=== PATIENT | female | born 1940 | race Caucasian/White ===

== ENCOUNTER 2016-11-17 21:01 | Inpatient (IN) | payer MEDICARE, MEDICAID ==
[~2016-11-17] VITALS: Ht 127 cm; Wt 71.8 kg
[~2016-11-17 21:01] MED LIST: AMLO5TAB88 PO; ASPI-1158 PO; ATROV; BIMA2.5D4; CALC0.253 PO; CARV6.2548 PO; FERR325T23 PO; GABA-531 PO; HYDR25TA PO; LISI10TA5 PO; NITR0.4T49; PIOG45TA18 PO; TRAM50TA PO
[2016-11-17 21:37] LABS: HEMATOCRIT. 22.5 % (36.0-48.0); HEMOGLOBIN. 7.7 g/dL (12.0-16.0); MEAN CORPUSCULAR HEMOGLOBIN 30.4 pg (28.0-32.0); MEAN CORPUSCULAR VOLUME 89.1 fL (81.0-99.0); MEAN PLATELET VOLUME 8.7 fl (7.4-10.4); PLATELET 318 x1000/uL (130-400); RED BLOOD CELL COUNT 2.53 mill/uL (4.2-5.4); RED CELL DISTRIBUTION WIDTH 13.5 % (11.6-14.6)
[2016-11-17 21:46] LABS: INR 1.1
[2016-11-17 21:58] LABS: PLATELET ESTIMATE NORMAL
[2016-11-17 22:00] LABS: CARBON DIOXIDE 18 mEq/L (21-32); CHLORIDE 94 mEq/L (98-107)
[2016-11-17 22:03] LABS: TROPONIN I 0.04 ng/mL (0.00-0.04)
[2016-11-17] MEDS ORDERED: SODIUM CHLORIDE 0.9% 1,000 ML IV ONE (22:45)
[2016-11-17] MEDS ORDERED: POTASSIUM CHLORIDE INJ 40 MEQ in DEXT 5% WATER 250 ML IV ONE (22:45)
[2016-11-17] MEDS ORDERED: POTASSIUM CHLORIDE 20MEQ TABLET SR PO ONE (22:45)
[2016-11-17 23:06] LABS: GLUCOSE URINE NEGATIVE (NEGATIVE); KETONES URINE NEGATIVE (NEGATIVE); LEUKOCYTE ESTERASE URINE 1+ (NEGATIVE); NITRITE URINE POSITIVE (NEGATIVE); OCCULT BLOOD URINE 1+ (NEGATIVE); PROTEIN URINE 2+ (NEGATIVE); SPECIFIC GRAVITY URINE 1.012 (1.005-1.030); UROBILINOGEN URINE 0.2 E.U./dL (0.2-1.0)
[2016-11-17 23:09] LABS: CLARITY URINE CLOUDY (CLEAR); COLOR URINE YELLOW (YELLOW)
[2016-11-17] MEDS ORDERED: CEFTRIAXONE 1 G PREMIX 50 ML IV ONE (23:45)
[2016-11-17] MEDS ORDERED: LEVETIRACETAM 1,000 MG in SODIUM CHLORIDE 0.9% 100 ML IV ONE (23:45)
[2016-11-18] VITALS (21 sets, daily range): BP systolic 91–159; BP diastolic 36–85
[2016-11-18] MEDS ORDERED: ONDANSETRON HCL 4MG/2ML VIAL IV PRN
[2016-11-18] MEDS ORDERED: IPRATROPIUM/ALBUTEROL 0.5-3(2.5)MG/3ML NEB INH PRN
[2016-11-18] MEDS ORDERED: SODIUM CHLORIDE 0.9% 500 ML IV ONE (00:30)
[2016-11-18] MEDS: LORAZEPAM 2MG/ML CPJ IV PRN (00:59)
[2016-11-18 01:12] LABS: ETHANOL BLOOD < 10 mg/dL
[2016-11-18 01:14] LABS: TOTAL IRON BINDING CAPACITY 405 ug/dL (250-450)
[2016-11-18] MEDS: DEXT 5%/0.45% NACL KCL 10MEQ/L 1,000 ML IV SCH ×2 (04:55→17:26)
[2016-11-18] MEDS ORDERED: LEVOFLOXACIN 500MG PREMIX 100 ML IV SCH (05:00)
[2016-11-18] MEDS ORDERED: DEXTROSE 50% WATER 50ML SYRINGE IV PRN (06:45)
[2016-11-18] MEDS: BLOOD SUGAR DIAGNOSTIC STRIP TEST SCH ×4 (06:47→21:57)
[2016-11-18] MEDS: INSULIN LISPRO 100 UNITS/ML SUBCUT SCH ×4 (08:00→22:22)
[2016-11-18] MEDS: LEVETIRACETAM 500 MG in SODIUM CHLORIDE 0.9% 100 ML IV SCH ×2 (09:29→21:58)
[2016-11-18] MEDS: PANTOPRAZOLE SODIUM 40 MG/VIAL IV SCH (09:29)
[2016-11-18 09:33] LABS: BASOPHILS % 0.2 % (0.0-2.0); EOSINOPHILS % 0.2 % (0.0-5.0); LYMPHOCYTES % 9.3 % (20.0-50.0); MEAN CORPUSCULAR HEMOGLOBIN 30.8 pg (28.0-32.0); MEAN CORPUSCULAR VOLUME 90.8 fL (81.0-99.0); MEAN PLATELET VOLUME 8.6 fl (7.4-10.4); MONOCYTES % 5.3 % (2.0-8.0); PLATELET 269 x1000/uL (130-400); RED BLOOD CELL COUNT 2.02 mill/uL (4.2-5.4); RED CELL DISTRIBUTION WIDTH 13.6 % (11.6-14.6)
[2016-11-18 09:37] LABS: AMMONIA 40 uMol/L (<32)
[2016-11-18 09:53] LABS: CARBON DIOXIDE 17 mEq/L (21-32); CHLORIDE 99 mEq/L (98-107); HDL CHOLESTEROL 36 mg/dL (40-59); LDL CHOLESTEROL 59 mg/dL (5-100)
[2016-11-18 10:13] LABS: HEMATOCRIT. 18.3 % (36.0-48.0); HEMOGLOBIN. 6.2 g/dL (12.0-16.0)
[2016-11-18 10:38] LABS: VITAMIN B12 SERUM > 2000.0 pg/mL (211-911)
[2016-11-18] MEDS ORDERED: SODIUM BICARBONATE 650 MG TABLET PO SCH (13:00)
[2016-11-18] MEDS ORDERED: POTASSIUM CHLORIDE INJ 60 MEQ in DEXT 5% WATER 500 ML IV NR (13:00)
[2016-11-18 13:11] LABS: *AMPHETAMINES SCREEN URINE NEGATIVE (NEGATIVE); *BARBITURATES SCREEN URINE NEGATIVE (NEGATIVE); *BENZODIAZEPINES SCREEN URINE NEGATIVE (NEGATIVE); *COCAINE SCREEN URINE NEGATIVE (NEGATIVE); CANNABINOID URINE SCREEN NEGATIVE (NEGATIVE); METHADONE URINE SCREEN NEGATIVE (NEGATIVE); OPIATES URINE SCREEN NEGATIVE (NEGATIVE); PHENCYCLIDINE URINE SCREEN NEGATIVE (NEGATIVE)
[2016-11-18 13:28] LABS: PHOSPHORUS 8.6 mg/dL (2.5-4.9)
[2016-11-18] MEDS ORDERED: CALCIUM GLUCONATE 100MG/ML 10ML VIAL IV ONE (14:45)
[2016-11-18] MEDS: CALCIUM GLUCONATE 1,000 MG in DEXT 5% WATER 100 ML IV SCH (17:40)
[2016-11-18] MEDS: SODIUM CHLORIDE 0.9% 1,000 ML IV SCH (21:15)
[2016-11-19] VITALS (16 sets, daily range): BP systolic 101–151; BP diastolic 34–91
[2016-11-19 02:28] LABS: HEMATOCRIT 32.4 % (36.0-48.0); HEMOGLOBIN 10.9 g/dL (12.0-16.0)
[2016-11-19] MEDS: LORAZEPAM 2MG/ML CPJ IV PRN ×2 (03:42→14:30)
[2016-11-19] MEDS ORDERED: POTASSIUM CHLORIDE INJ 40 MEQ in DEXT 5% WATER 250 ML IV NR ×2 (06:00→14:00)
[2016-11-19] MEDS: DEXT 5%/0.45% NACL KCL 10MEQ/L 1,000 ML IV SCH ×2 (06:31→18:30)
[2016-11-19 07:48] LABS: BASOPHILS % 0.3 % (0.0-2.0); EOSINOPHILS % 1.8 % (0.0-5.0); HEMATOCRIT. 33.8 % (36.0-48.0); HEMOGLOBIN. 11.4 g/dL (12.0-16.0); LYMPHOCYTES % 9.1 % (20.0-50.0); MEAN CORPUSCULAR HEMOGLOBIN 29.3 pg (28.0-32.0); MEAN CORPUSCULAR VOLUME 86.6 fL (81.0-99.0); MEAN PLATELET VOLUME 8.5 fl (7.4-10.4); MONOCYTES % 7.7 % (2.0-8.0); NEUTROPHILS % 81.1 % (40.0-76.0); PLATELET 264 x1000/uL (130-400); RED CELL DISTRIBUTION WIDTH 15.6 % (11.6-14.6)
[2016-11-19 07:49] LABS: AMMONIA 40 uMol/L (<32)
[2016-11-19] MEDS: INSULIN LISPRO 100 UNITS/ML SUBCUT SCH ×4 (08:00→20:58)
[2016-11-19] MEDS: BLOOD SUGAR DIAGNOSTIC STRIP TEST SCH ×4 (08:00→20:58)
[2016-11-19] MEDS: SODIUM CHLORIDE 0.9% 1,000 ML IV SCH ×2 (09:56→17:15)
[2016-11-19] MEDS: PANTOPRAZOLE SODIUM 40 MG/VIAL IV SCH (10:15)
[2016-11-19] MEDS: LEVETIRACETAM 500 MG in SODIUM CHLORIDE 0.9% 100 ML IV SCH ×2 (10:15→20:47)
[2016-11-19] MEDS ORDERED: MAGNESIUM 4 G PREMIX 100 ML IV SCH (12:00)
[2016-11-19] MEDS: LACTULOSE 20G/30ML UDC PO SCH (13:07)
[2016-11-19] MEDS ORDERED: LORAZEPAM 2MG/ML CPJ IV PRN (15:30)
[2016-11-19] MEDS: FERROUS SULFATE 325MG TABLET PO SCH (18:00)
[2016-11-19] MEDS: CALCIUM GLUCONATE 1,000 MG in DEXT 5% WATER 100 ML IV SCH (20:46)
[2016-11-20] VITALS (7 sets, daily range): BP systolic 135–175; BP diastolic 50–75
[2016-11-20] MEDS: SODIUM CHLORIDE 0.9% 1,000 ML IV SCH (03:15)
[2016-11-20] MEDS ORDERED: LEVOFLOXACIN 250MG PREMIX 50 ML IV SCH (05:00)
[2016-11-20] MEDS: DEXT 5%/0.45% NACL KCL 10MEQ/L 1,000 ML IV SCH (05:07)
[2016-11-20 06:06] LABS: A/G RATIO 0.6 (0.7-1.7); ALBUMIN 1.9 g/dL (2.9-4.4); ALPHA-1-GLOBULIN 0.4 g/dL (0.0-0.4); ALPHA-2-GLOBULIN 1.1 g/dL (0.4-1.0); BETA GLOBULIN 0.6 g/dL (0.7-1.3); GAMMA GLOBULINS 1.1 g/dL (0.4-1.8); GLOBULIN TOTAL 3.2 g/dL (2.2-3.9); M-SPIKE Not Observed g/dL (Not Observed); TOTAL PROTEIN SERUM 5.1 g/dL (6.0-8.5)
[2016-11-20] MEDS: BLOOD SUGAR DIAGNOSTIC STRIP TEST SCH (07:30)
[2016-11-20] MEDS: INSULIN LISPRO 100 UNITS/ML SUBCUT SCH (08:00)
[2016-11-20 08:39] LABS: BASOPHILS % 1.1 % (0.0-2.0); HEMATOCRIT. 34.9 % (36.0-48.0); HEMOGLOBIN. 11.8 g/dL (12.0-16.0); LYMPHOCYTES % 15.6 % (20.0-50.0); MEAN CORPUSCULAR HEMOGLOBIN 30.4 pg (28.0-32.0); MONOCYTES % 9.8 % (2.0-8.0); NEUTROPHILS % 71.5 % (40.0-76.0); RED BLOOD CELL COUNT 3.88 mill/uL (4.2-5.4); RED CELL DISTRIBUTION WIDTH 16.5 % (11.6-14.6)
[2016-11-20] MEDS: LEVETIRACETAM 500 MG in SODIUM CHLORIDE 0.9% 100 ML IV SCH ×2 (09:00→10:13)
[2016-11-20] MEDS ORDERED: DOCUSATE SODIUM 100MG CAPSULE PO SCH (09:00)
[2016-11-20] MEDS: PANTOPRAZOLE SODIUM 40 MG/VIAL IV SCH (09:14)
[2016-11-20] MEDS: FERROUS SULFATE 325MG TABLET PO SCH (09:18)
[2016-11-20] MEDS: LACTULOSE 20G/30ML UDC PO SCH (09:18)
[2016-11-20 13:33] LABS: MEAN PLATELET VOLUME 8.6 fl (7.4-10.4); PLATELET 294 x1000/uL (130-400)
[2016-11-20] MEDS ORDERED: QUETIAPINE FUMARATE 25MG TABLET PO SCH (14:00)
== END 2016-11-20 11:15 | disposition left against medical advice (07) | DRG 100 ==
LOC: ER 21:09 → SUPCPDRO 23:49 → 5EST 23:52 → CANRESERV 11-18 01:34 → ENRESERV 11-18 01:34
PROVIDERS: ADMIT Specialist; ATTEND Specialist
PROC: 30233N1 Transfusion of Nonautologous Red Blood Cells into Peripheral Vein, Percutaneous Approach (ICD-10-PCS; principal; 2016-11-18)
DX: G40.909 Epilepsy, unspecified, not intractable, without status epilepticus (principal); G92 Toxic encephalopathy; N17.9 Acute kidney failure, unspecified; E44.0 Moderate protein-calorie malnutrition; E87.2 Acidosis; I13.0 Hypertensive heart and chronic kidney disease with heart failure and stage 1 through stage 4 chronic kidney disease, or unspecified chronic kidney disease; Z68.41 Body mass index [BMI] 40.0-44.9, adult; E87.6 Hypokalemia; D50.9 Iron deficiency anemia, unspecified; E11.22 Type 2 diabetes mellitus with diabetic chronic kidney disease; E78.00 Pure hypercholesterolemia, unspecified; I50.9 Heart failure, unspecified; R00.1 Bradycardia, unspecified; B96.20 Unspecified Escherichia coli [E. coli] as the cause of diseases classified elsewhere; Z53.21 Procedure and treatment not carried out due to patient leaving prior to being seen by health care provider; E83.51 Hypocalcemia; J44.9 Chronic obstructive pulmonary disease, unspecified; N18.9 Chronic kidney disease, unspecified; N30.90 Cystitis, unspecified without hematuria; Z86.73 Personal history of transient ischemic attack (TIA), and cerebral infarction without residual deficits; I25.2 Old myocardial infarction; Z79.82 Long term (current) use of aspirin; Z79.899 Other long term (current) drug therapy; Z90.49 Acquired absence of other specified parts of digestive tract
CPT/HCPCS: 36415; 70450; 70551; 71010; 76770; 80048; 80053; 80061; 80076; 80305; 81001; 82140; 82330; 82607; 82728; 82746; 82962; 83036; 83540; 83550; 83605; 83690; 83735; 83970; 84100; 84132; 84155; 84165; 84439; 84443; 84481; 84484; 85014; 85018; 85025; 85610; 86850; 86900; 86920; 87040; 87077; 87086; 87186; 92610; 93005; 93306; 93970; 96365; 96375; 99291; C9113; G0482; J0610; J0696; J1815; J1953; J1956; J2060; J3475; J3480; J7030; J7040; J7050; J7060; P9016